=== PATIENT | female | born 1965 | race Asian ===

== ENCOUNTER → 2016-10-20 | Outpatient (CLI) | payer OTHER ==
[~2016-10-20] VITALS: Ht 147.3 cm; Wt 72.1 kg
[~2016-10-20] MED LIST: ATORVASTATIN CA10 MG PO; CULTURELLE CAP1 EACH PO; MULTIPLE VITAM1 EACH PO; NAPROXEN500 MG PO; PERCOCET 5/31 TABLET PO; PROVERA,CYCRIN10 MG PO; ZOFRAN4 MG PO
== END | disposition home or self-care (01) ==
LOC: AMB 07:56
PROC: 0DJD8ZZ Inspection of Lower Intestinal Tract, Via Natural or Artificial Opening Endoscopic (ICD-10-PCS; principal; 2016-10-20)
DX: Z12.11 Encounter for screening for malignant neoplasm of colon (principal); E78.5 Hyperlipidemia, unspecified; E66.9 Obesity, unspecified
CPT/HCPCS: J2250; J3010